=== PATIENT | female | born 1970 | race Caucasian/White ===

== ENCOUNTER 2017-05-21 03:18 | Inpatient (IN) | payer BC ==
[2017-05-17 09:48] VITALS: BP 125/77
[2017-05-17 10:23] LABS: BASO # 0.1 10*3/uL (0.0-0.1); BASO % 0.7 % (0.0-1.0); EOS # 0.2 10*3/uL (0.0-0.4); EOS % 1.5 % (1.0-4.0); HEMATOCRIT 42.1 % (37.0-47.0); HEMOGLOBIN 13.7 g/dl (12.0-16.0); LYMPH # 4.7 10*3/uL (1.3-4.4); LYMPH % 46.5 % (27.0-41.0); MEAN CELL VOLUME 94.8 fl (81.0-99.0); MEAN CORPUSCULAR HGB 30.9 pg (27.0-31.0); MEAN CORPUSCULAR HGB CONC 32.5 g/dl (33.0-37.0); MEAN PLATELET VOLUME 10.3 fl (9.6-12.3); MONO # 0.6 10*3/uL (0.1-1.0); MONO % 5.6 % (3.0-9.0); NEUT # 4.6 10*3/uL (2.3-7.9); NEUT % 45.5 % (47.0-73.0); PLATELET COUNT AUTOMATED 280 10*3/uL (130-400); RED BLOOD COUNT 4.44 10*6/uL (4.10-5.10); RED CELL DISTRI WIDTH 13.2 % (0-14.5); WHITE BLOOD COUNT 10.1 10*3/uL (4.8-10.8)
[2017-05-21] VITALS (10 sets, daily range): BP systolic 109–153; BP diastolic 54–85
[~2017-05-21] VITALS: Ht 173 cm; Wt 109.0 kg
--- NOTE | ~2017-05-21 | WRIGHTHP ---
[place], [place] PATIENT HISTORY AND PHYSICAL EXAM NAME: [id number] UNIT #: [id number] ROOM: DOCTOR: JUANA LEE MD BIRTHDATE: [birth year] DOS: 05/21/2017 HISTORY OF PRESENT ILLNESS: This is a 47-year-old white female, 1, para 1, whose last menstrual period is uncertain due to the irregularity in her bleeding pattern, who was seen on 05/01/2017 for preop discussion in regard to LAVH and RSO. In 08/2015, the patient had had a diagnostic laparoscopy and a left salpingo-oophorectomy for a large benign left ovarian cyst. This was done for pain. The patient started in 09/2016 or 10/2016 to have spotting followed by bright red bleeding for several days on and off on an inconsistent basis. The patient was status post NovaSure which again had worked well for several years, but then this issue started. What was more troubling however to the patient was severe dysmenorrhea and low backache from suspected adenomyosis and a retroverted, retroflexed uterus. The patient states that she is in significant pain, although she is in significant pain from a number of other sources already and uses Nucynta 75 mg 3 times a day for the pain as well as Flexeril 10 mg t.i.d. This does make the back issue somewhat confusing, but the severe dysmenorrhea and the suspected adenomyosis as well as a retroverted, retroflexed uterus are clearly present. She states that she does not want any narcotics from me, but she is already taking a number of narcotics for these various pain issues as well as fibromyalgia. She also states that she does not want to take a large quantity of anti-inflammatories. She is not interested in progesterone and we discussed an LAVH-RSO, but at that time the patient decided that she would research the issue and respond to us. We also discussed the potential need for hormone replacement therapy. She did research these issues and she contacted us about a week later and advised that she would like to proceed with the LAVH-RSO. The patient had been on Plavix in the past for reason that I am not exactly sure of, but she has discontinued this and she has also discontinued smoking. On 05/01/2017, again, we decided to proceed with the [facility]-RSO and the risks, benefits, indications, potential complications, and alternatives were reviewed, understanding stated and consent was signed. 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 She also has a history of hypertension, low back pain and back spasm, depression, anxiety, has been seeing therapist for this. She had a lung nodule which was determined to be benign. She states a history of cervical cancer at age 28, but we have no validation of what the actual diagnosis was. She has reflux and she is seeing Dr. Byrne, I believe at [facility] for PAD. She states that since her NovaSure, now her cycles are irregular at best and in the while somewhat improved in terms of volume of flow. Certainly, the irregularity and this dysmenorrhea are such that they are quite troubling. She was treated in the past surgically for the cervical issue with LEEP. She has had tonsillectomy and has had a right hand cyst removed, had a diagnostic laparoscopy as I mentioned and left salpingo-oophorectomy, hysteroscopy and NovaSure. She has had 1 and 1 vaginal delivery. Her last Pap and her last mammogram were in late 2015, and were both negative. The patient states that she had been admitted for a strep and a MRSA infection sometime in the past, but this has not been an issue in any of the dealings that we have had with her on any situation. The patient had been a fairly heavy smoker, but states that she has now discontinued smoking. She does not drink or [place], [place] PATIENT HISTORY AND PHYSICAL EXAM NAME: LUIS M RODRIGUES UNIT #: [id number] ROOM: DOCTOR: JUANA LEE MD BIRTHDATE: [birth year] use any other drugs. MEDICATIONS: Include clonazepam 2 mg t.i.d. for anxiety, Flexeril 10 mg t.i.d. for back spasm and pain. The Nucynta 75 mg t.i.d. for pain, meclizine 25 mg 4 times a day for vertigo, carvedilol 3.125 mg 2 times a day for hypertension and Serafin 5/40 one tablet daily for hypertension. She also takes Klonopin 2 mg b.i.d. for anxiety, Protonix 40 mg daily for reflux and does take her calcium and vitamin D. ALLERGIES: She states allergies to CLINDAMYCIN, DOXYCYCLINE, NAPROSYN, LYRICA AND PREDNISONE. FAMILY HISTORY: Reveals father , but no reason given. Her maternal grandmother from brain cancer and lung cancer. Maternal aunt from cancer. Her mother also had coronary artery disease. PHYSICAL EXAMINATION: GENERAL: Reveals a pleasant white female. She is 5 feet and 8-1/2 inches, 244 pounds, BMI is 36.6. She is in no apparent distress. VITAL SIGNS: Blood pressure 106/66. HEENT: Normal. NECK: Normal. LUNGS: Normal. CARDIAC: Normal. BREASTS: Normal. ABDOMEN: Normal. EXTREMITIES: Stable. NEUROLOGIC: Stable. GENITOURINARY: The external genitalia, vagina normal. Cervix normal. As I said, most recent Pap negative. Uterus has mild distances only, but it is not enlarged per previous laparoscopy and it is retroverted and retroflexed. Adnexa left is absent, the right is normal. RECTAL: Negative. Stool heme test negative. ASSESSMENT AND PLAN: The patient who has rather complex medical history and who has chronic pain and a number of other circumstances, but does have severe dysmenorrhea, suspected adenomyosis based on a previous laparoscopic evaluation, low backache and a retroverted, retroflexed uterus who is still having erratic spotting and bleeding following NovaSure, who would like definitive therapy and to that end, on 05/21/2017, she will undergo an LAVH and RSO. [place], [place] PATIENT HISTORY AND PHYSICAL EXAM NAME: LUIS M RODRIGUES UNIT #: [id number] ROOM: DOCTOR: JUANA LEE MD BIRTHDATE: [birth year] JUANA LEE MD CM:HISPHYS:PATIENT HISTORY AND PHYSICAL EXAMINATION [id number] JUANA LEE MD 05/17/17 1031 interface
--- NOTE | ~2017-05-21 | O ---
[place], [place] OPERATIVE NOTE NAME: [id number] UNIT #: [id number] ROOM: 401 DOCTOR: JUANA LEE MD BIRTHDATE: [birth year] DOS: 05/21/2017 PREOPERATIVE DIAGNOSES: Status post left salpingo-oophorectomy, status post NovaSure having progressively worsening dysmenorrhea in a patient with a retroverted, retroflexed uterus, chronic low back pain and suspected adenomyosis. POSTOPERATIVE DIAGNOSES: Status post left salpingo-oophorectomy, status post NovaSure having progressively worsening dysmenorrhea in a patient with a retroverted, retroflexed uterus, chronic low back pain and suspected adenomyosis. PROCEDURE: LAVH-RSO and minimal lysis of adhesions. SURGEON: Dr. Juana Shea. ANESTHETIC: General. ESTIMATED BLOOD LOSS: 50-75 mL. REPLACEMENTS: IV fluids, Ancef, Ofirmev, and Toradol. COMPLICATIONS: There were no complications with the procedure. CONDITION: The patient was stable to recovery. OPERATIVE SUMMARY: The patient to the operating room in supine position, general anesthesia, endotracheal intubation, lithotomy position, prepped and draped in routine manner. Sifuentes catheter was placed to straight drain. We had known from the office that there was not a lot of mobility to the cervix. We were able to grasp it with a tenaculum, but we were not able to use intracervical manipulator. We then made 3 incisions infraumbilically, suprapubically and right lower quadrant. We placed our infraumbilical trocar and sleeve under direct visualization and then we insufflated with CO2. The suprapubic and right lower quadrant, 5-mm trocars and sleeves were placed with appropriate instrumentation. The right tube and ovary was stable with a small functional cyst. Uterus itself was unchanged from the previous description noted in my last laparoscopy. The upper abdomen also was normal. Using the LigaSure device, we freed the right ovary and tube with successive pedicles and then we took successive pedicles along very close to the uterus itself down to a point near the uterine vasculature. We created a bladder flap without complication. Once this was completed, we removed our instrumentation leaving the ports, turned our attention vaginally. The patient was repositioned. The cervix was grasped and injected in a circumferential manner with 1% lidocaine with epinephrine. Then, a circumferential incision made. The bladder was displaced anteriorly and the rectum posteriorly. We entered the posterior cul-de-sac and created uterosacral and cardinal ligament pedicles using Andrew clamps. Once these transfixing sutures were placed because of the overall size of the uterus and significantly decrease in the operating room within the vagina, we just used the Andrew clamps, took successive pedicles bilaterally up [place], [place] OPERATIVE NOTE NAME: LUIS M RODRIGUES UNIT #: [id number] ROOM: [facility] DOCTOR: JUANA LEE MD BIRTHDATE: [birth year] to a point very near where her pedicles had been created coming down from above with the intraabdominal LigaSure. Once this was completed, the uterus was inverted and at last, a small amount of connection was removed and the uterus, cervix, and right tube and ovary removed intact. Noting good hemostasis and stable sponge and instrument count, we reperitonealized with 2-0 Vicryl suture in a purse-string manner and then we closed the vaginal cuff with a series of interrupted [id number] Vicryl sutures. Noting good hemostasis, we reinsufflated the abdomen and reinserted our instrumentation, evaluated the cuff itself. The right adnexal region and the ureters noted the ureters to be peristalsing normally and well away from our operative sites and noted that the cuff and the right adnexal region were hemostatic. Noting this, we removed the 2 lower abdominal trocar sleeves and instrumentation and noting no excessive anterior abdominal bleeding. CO2 was then allowed to escape, followed by removal of the infraumbilical trocar sleeve and laparoscope. Each incision was closed with subcuticular 3-0 Monocryl suture. Steri-Strips and dressings placed. The patient was cleaned off, taken out of lithotomy position, awakened, extubated, and transferred to recovery in satisfactory condition with stable vital signs, stable sponge and instrument count, clear and adequate urine output and good hemostasis. JUANA LEE MD CM:OPRECORD:OPERATIVE NOTE [id number] JUANA LEE MD 05/21/17 1237 interface
[~2017-05-21 03:18] MED LIST: ANTIVERT12.5 MG PO; ANTIVERT25 MG PO; ASPIRIN CHEWABL81 MG PO; AUGMENTIN 875 M1 TAB PO; AZOR 5-40 MG T1 EACH PO; B COMPLETE1 EACH PO; BROMFED 2 MG/5120 ML PO; CIPRO500 MG PO; CLONAZEPAM2 M1 PO; COREG3.125 MG PO; COUGH SYRU100 MG/5 M PO; DELTASONE10 MG PO; DUONEB 3 MG/3 ML3 M1 INH; FLEXERIL10 MG PO; LEVAQUIN750 MG PO; MOTRIN600 MG PO; NATURE'S BLEND F1 MG PO; NUCYNTA75 MG PO; PERCOCET 325 MG1 TA2 PO; PLAVIX75 M1 PO; PROAIR HFA8.5 GM INH; PROTONIX40 MG PO; TESSALON PERLE200 MG PO; ULTRAM50 MG PO; VICODIN 5/500 505 MG PO; VITAMIN D34000 UNIT PO; ZITHROMAX Z PA250 MG PO
[2017-05-21] MEDS ORDERED: PROZAC20 MG PO (12:23)
[2017-05-22] VITALS: BP 115/53
[2017-05-22 08:00] VITALS: BP 130/76
== END 2017-05-22 11:40 | disposition home health service (06) | DRG 743 ==
LOC: SDC 03:18 → 4E 06:59 → SDC 09:30 → 4E 09:33
PROVIDERS: Obstetrics & Gynecology
PROC: 0UT9FZZ Resection of Uterus, Via Natural or Artificial Opening With Percutaneous Endoscopic Assistance (ICD-10-PCS; principal; 2017-05-21)
PROC: 0UT1FZZ Resection of Left Ovary, Via Natural or Artificial Opening With Percutaneous Endoscopic Assistance (ICD-10-PCS; principal; 2017-05-21)
DX: N80.0 Endometriosis of uterus (principal); I10 Essential (primary) hypertension; G89.29 Other chronic pain; N94.6 Dysmenorrhea, unspecified; F32.9 Major depressive disorder, single episode, unspecified; Z88.8 Allergy status to other drugs, medicaments and biological substances; Z82.49 Family history of ischemic heart disease and other diseases of the circulatory system; Z80.1 Family history of malignant neoplasm of trachea, bronchus and lung; Z80.8 Family history of malignant neoplasm of other organs or systems; Z88.1 Allergy status to other antibiotic agents; Z85.41 Personal history of malignant neoplasm of cervix uteri

== ENCOUNTER 2017-05-28 13:42 | Emergency (ER) | payer BC ==
[~2017-05-28] VITALS: Ht 172.7 cm; Wt 105.2 kg
[~2017-05-28 13:42] MED LIST changes: +PROZAC20 MG PO
[2017-05-28 14:43] LABS: BASO % 0.3 % (0.0-1.0); EOS # 0.2 10*3/uL (0.0-0.4); EOS % 1.2 % (1.0-4.0); HEMOGLOBIN 13.7 g/dl (12.0-16.0); IG # 0.1 10*3/uL (0.0-0.1); LYMPH % 26.4 % (27.0-41.0); MEAN CELL VOLUME 94.2 fl (81.0-99.0); MEAN CORPUSCULAR HGB 30.7 pg (27.0-31.0); MEAN CORPUSCULAR HGB CONC 32.6 g/dl (33.0-37.0); MEAN PLATELET VOLUME 10.2 fl (9.6-12.3); MONO # 1.3 10*3/uL (0.1-1.0); MONO % 8.6 % (3.0-9.0); NEUT # 9.5 10*3/uL (2.3-7.9); NEUT % 62.8 % (47.0-73.0); PLATELET COUNT AUTOMATED 294 10*3/uL (130-400); RED BLOOD COUNT 4.46 10*6/uL (4.10-5.10); RED CELL DISTRI WIDTH 13.2 % (0-14.5); WHITE BLOOD COUNT 15.1 10*3/uL (4.8-10.8)
[2017-05-28 14:59] LABS: ALBUMIN 3.4 gm/dl (3.1-4.5); ALKALINE PHOSPHATASE 77 U/L (45-117); BILIRUBIN, TOTAL 0.8 mg/dl (0.2-1.0); BUN 9 mg/dl (7-24); CARBON DIOXIDE 28 mmol/L (21-32); CHLORIDE 104 mmol/L (98-107); EST GLOM FILT AFRICAN AMERICAN > 60 ml/min; GLUCOSE 114 mg/dL (65-99); POTASSIUM 4.9 mmol/L (3.5-5.1); SGOT/AST 29 IU/L (3-35); SGPT/ALT 56 U/L (12-78); SODIUM 135 mmol/L (136-145); TOTAL PROTEIN 7.9 gm/dL (6.4-8.2)
[2017-05-28 15:01] LABS: BILIRUBIN NEGATIVE (NEGATIVE); BLOOD 1+ (NEGATIVE); CLARITY CLEAR (CLEAR); COLOR YELLOW (YELLOW); GLUCOSE NEGATIVE (NEGATIVE); KETONE NEGATIVE (NEGATIVE); LEUKO ESTERASE TRACE (NEGATIVE); NITRITE NEGATIVE (NEGATIVE); PH 6.5 (5.0-9.0); PROTEIN NEGATIVE (NEGATIVE)
[2017-05-28 15:06] LABS: BACTERIA TRACE; RBC 0-2 rbc/hpf (0-2)
[2017-05-28 15:07] LABS: URINE REFLEX COMMENT YES (NO)
[2017-05-28] MEDS ORDERED: MIRALAX POWDER17 G1 PO (16:30)
== END 2017-05-28 18:11 | disposition home or self-care (01) ==
LOC: ED 13:42
PROVIDERS: Emergency Medicine
DX: K59.03 Drug induced constipation (principal); R33.9 Retention of urine, unspecified; G89.18 Other acute postprocedural pain; Z88.1 Allergy status to other antibiotic agents; Z88.6 Allergy status to analgesic agent; Z88.8 Allergy status to other drugs, medicaments and biological substances; Z79.899 Other long term (current) drug therapy; Z79.82 Long term (current) use of aspirin